=== PATIENT | male | born 1975 ===

== ENCOUNTER 2018-07-01 08:17 | Emergency (ER) | payer MEDICAID ==
[2018-07-01 08:21] VITALS: BMI 29.0
[2018-07-01 08:22] VITALS: RESP 20; O2SAT 97
[2018-07-01] MEDS ORDERED: Sodium Chloride 0.9% 1,000 ML IV STA (09:17)
--- NOTE | 2018-07-01 09:25 | ED PDOC ---
HPI: Abdomen Time Seen by Provider: 07/01/18 09:06 Chief Complaint (Provider): Abdominal Pain History Per: Patient, Other (HPD) History/Exam Limitations: no limitations Onset/Duration Of Symptoms: Other (prior to arrival) Current Symptoms Are (Timing): Still Present Additional Complaint(s): 43 y/o male with a PMHx of HTN and hypercholesterolemia presenting under police custody for evaluation of abdominal pain onset prior to arrival. Officer states patient was arrested last night and began to complain of acute abdominal pain after arrest. Patient states the pain is present in both sides of his abdomen and radiates to his back. He reports some nausea and dysuria, but denies any history of similar pain, changes in bowel habits, hematuria, frequency, vomiting , diarrhea, fall or trauma, testicular pain, numbness, weakness, chest pain, cough, shortness of breath, headache, fever, or chills. Patient admits to drinking, but denies any drug use. PMD: None reported Past Medical History Reviewed: Historical Data, Nursing Documentation, Vital Signs Vital Signs: Last Vital Signs Temp 98.2 F 07/01/18 08:21 Pulse 113 H 07/01/18 08:21 Resp 20 07/01/18 08:21 BP 126/91 H 07/01/18 08:21 Pulse Ox 97 07/01/18 09:32 - Medical History PMH: HTN, Hypercholesterolemia - Surgical History Surgical History: No Surg Hx - Family History Family History: States: Unknown Family Hx - Allergies Allergies/Adverse Reactions: Allergies Allergy/AdvReac Type Severity Reaction Status Date / Time No Known Allergies Allergy Verified 07/01/18 09:17 Review of Systems ROS Statement: Except As Marked, All Systems Reviewed And Found Negative Constitutional: Negative for: Fever, Chills Cardiovascular: Negative for: Chest Pain Respiratory: Negative for: Cough, Shortness of Breath Gastrointestinal: Positive for: Nausea, Abdominal Pain. Negative for: Vomiting , Diarrhea, Constipation Genitourinary Male: Positive for: Dysuria. Negative for: Frequency, Incontinence, Hematuria, Scrotal Pain Musculoskeletal: Positive for: Back Pain Neurological: Negative for: Weakness, Numbness, Headache, Dizziness Physical Exam - Reviewed Nursing Documentation Reviewed: Yes Vital Signs Reviewed: Yes - Physical Exam Appears: Positive for: Non-toxic, No Acute Distress Head Exam: Positive for: ATRAUMATIC, NORMAL INSPECTION, NORMOCEPHALIC Skin: Positive for: Normal Color, Warm, Dry. Negative for: Rash Eye Exam: Positive for: EOMI, Normal appearance, PERRL Neck: Positive for: Normal, Painless ROM, Supple Cardiovascular/Chest: Positive for: Regular Rate, Rhythm. Negative for: Murmur Respiratory: Positive for: Normal Breath Sounds. Negative for: Respiratory Distress Gastrointestinal/Abdominal: Positive for: Soft (mild diffuse tenderness), Tenderness Back: Positive for: Other (mild left lower back tenderness, negative straight leg raise) Extremity: Positive for: Normal ROM. Negative for: Pedal Edema, Deformity Neurologic/Psych: Positive for: Alert, Oriented (x3). Negative for: Motor/ Sensory Deficits - Laboratory Results Result Diagrams: 07/01/18 09:35 07/01/18 09:35 Interpretation Of Abn Labs: coccaine and etoh positive Urine dip results: Negative for: Leukocyte Esterase, Nitrate - ECG O2 Sat by Pulse Oximetry: 97 (RA) Pulse Ox Interpretation: Normal - Progress ED Course And Treament: 1137: Feels better. AAOx3. FU with pcp. Tolerated PO. Medical Decision Making Medical Decision Makin:17 Impression: Abdominal pain Plan: -CT abdomen and pelvis w/o contrast -Alcohol serum -CMP -Urine drug screen -Lipase -Urine dip -CBC w/ differential -Pepcid 20mg/50ml IVPB -1LNS -Toradol 15mg IVP -Reevaluation Scribe Attestation: Documented by Skip Sharma, acting as a scribe for Jake Duff MD. Provider Scribe Attestation: All medical record entries made by the Scribe were at my direction and personally dictated by me. I have reviewed the chart and agree that the record accurately reflects my personal performance of the history, physical exam, medical decision making, and the department course for this patient. I have also personally directed, reviewed, and agree with the discharge instructions and disposition. Disposition - Clinical Impression Clinical Impression: Abdominal pain, Alcohol abuse, Cocaine abuse Counseled Patient/Family Regarding: Studies Performed, Diagnosis, Need For Followup - Disposition Referrals: [facility] [Outside] - 07/03/18 Disposition: Routine/Home Disposition Time: 11:48 Condition: STABLE Additional Instructions: Return if not better in 3 days. Instructions: Stomach Ache and Stomach Upset, Drug Abuse and Drug Addiction (DC ), Alcohol Abuse and Alcoholism (DC) Print Language: ITALIAN
[2018-07-01 09:46] LABS: BASO % 0.5 % (0.0-2.0); EOS % 0.4 % (0.0-4.0); HEMOGLOBIN 16.6 g/dL (12.0-18.0); LYMPH # 1.6 K/uL (1.0-4.3); LYMPH % 16.1 % (20.0-40.0); MEAN CORPUSCULAR HEMOGLOBIN 30.1 pg (27.0-31.0); MEAN CORPUSCULAR HGB CONC 33.8 g/dL (33.0-37.0); MEAN PLATELET VOLUME 6.6 fl (7.2-11.7); MONO # 0.6 K/uL (0.0-0.8); NEUT # 7.4 K/uL (1.8-7.0); RBC 5.5 Mil/uL (4.40-5.90); RED CELL DISTRIBUTION WIDTH 13.8 % (11.5-14.5); WHITE BLOOD COUNT 9.7 K/uL (4.8-10.8)
[2018-07-01 09:56] LABS: ALB/GLOB RATIO 1.4 (1.0-2.1); ALBUMIN 4.9 g/dL (3.5-5.0); ALT/SGPT 67 U/L (21-72); AST/SGOT 63 U/L (17-59); BLOOD UREA NITROGEN 13 mg/dl (9-20); CALCIUM 9.2 mg/dL (8.4-10.2); GFR AFRICAN-AMERICAN > 60; GFR NON-AFRICAN AMERICAN > 60; LIPASE 34 U/L (23-300)
--- NOTE | 2018-07-01 10:20 | CT ---
Date of service: 07/01/2018 PROCEDURE: CT Abdomen and Pelvis without intravenous contrast HISTORY: R/O stone COMPARISON: None. TECHNIQUE: Technique. Contrast dose: Radiation dose: Total exam DLP = mGy-cm. This CT exam was performed using one or more of the following dose reduction techniques: Automated exposure control, adjustment of the mA and/or kV according to patient size, and/or use of iterative reconstruction technique. FINDINGS: LOWER THORAX: Unremarkable. LIVER: Fatty liver. No gross lesion or ductal dilatation. GALLBLADDER AND BILE DUCTS: Unremarkable. PANCREAS: Unremarkable. No gross lesion or ductal dilatation. SPLEEN: Unremarkable. ADRENALS: Unremarkable. No mass. KIDNEYS AND URETERS: Unremarkable. No hydronephrosis. No solid mass. VASCULATURE: Unremarkable. No aortic aneurysm. BOWEL: Unremarkable. No obstruction. No gross mural thickening. APPENDIX: Unremarkable. Normal appendix. PERITONEUM: Unremarkable. No free fluid. No free air. LYMPH NODES: Unremarkable. No enlarged lymph nodes. BLADDER: Unremarkable. REPRODUCTIVE: Unremarkable. BONES: No acute fracture. OTHER FINDINGS: None. IMPRESSION: Fatty liver.
[2018-07-01 11:27] LABS: BARBITURATES, UR NEGATIVE (NEGATIVE)
[2018-07-01 11:32] LABS: BENZODIAZEPINES, UR NEGATIVE (NEGATIVE); OPIATES, UR NEGATIVE (NEGATIVE); PHENCYCLIDINE, UR NEGATIVE (NEGATIVE)
[2018-07-01 12:21] VITALS: BP 124/61; PULSE 84; TEMP 98.6
== END 2018-07-01 12:54 ==
LOC: H.ER 08:17
DX: R10.9 Unspecified abdominal pain (principal); F10.10 Alcohol abuse, uncomplicated; F14.10 Cocaine abuse, uncomplicated; E78.00 Pure hypercholesterolemia, unspecified; I10 Essential (primary) hypertension; K76.0 Fatty (change of) liver, not elsewhere classified
CPT/HCPCS: 74176; 80053; 80320; 80324; 80345; 80346; 80349; 80353; 80358; 80361; 83690; 83992; 85025; 96361; 96374; 96375; 99285; J1885; J7030

== ENCOUNTER 2018-07-01 23:41 | Emergency (ER) | payer MEDICAID ==
[2018-07-01 23:41] VITALS: BMI 29.0
[2018-07-01 23:47] VITALS: RESP 18; O2SAT 98
--- NOTE | 2018-07-02 00:50 | ED PDOC ---
HPI: Psych/Substance Abuse Time Seen by Provider: 07/01/18 23:42 Chief Complaint (Nursing): Psychiatric Evaluation Chief Complaint (Provider): SI - 1 day History Per: Patient History/Exam Limitations: no limitations Onset/Duration Of Symptoms: Hrs Additional Complaint(s): 43 yo male with history of HTN presents for evaluation of SI. Pt under arrest and has been in [facility] x 1 day. When patient was being transferred to [facility] he reported SI. Pt states he does not have a plan. Pt denies SOB, chest pain, abdominal pain, N/V/D. Past Medical History Reviewed: Historical Data, Nursing Documentation, Vital Signs Vital Signs: Last Vital Signs Temp 98 F 07/01/18 23:43 Pulse 90 07/01/18 23:43 Resp 18 07/01/18 23:43 BP 145/90 07/01/18 23:43 Pulse Ox 98 07/01/18 23:43 - Medical History PMH: HTN, Hypercholesterolemia Denies: Diabetes, Hepatitis, HIV, Seizures, Sexually Transmitted Disease - Surgical History Surgical History: No Surg Hx - Family History Family History: States: Unknown Family Hx - Living Arrangements Living Arrangements: With Family - Social History Current smoker - smoking cessation education provided: No - Allergies Allergies/Adverse Reactions: Allergies Allergy/AdvReac Type Severity Reaction Status Date / Time No Known Allergies Allergy Verified 07/01/18 09:17 Review of Systems ROS Statement: Except As Marked, All Systems Reviewed And Found Negative Constitutional: Negative for: Fever, Chills Cardiovascular: Negative for: Chest Pain, Palpitations Respiratory: Negative for: Cough Gastrointestinal: Negative for: Nausea, Vomiting Neurological: Negative for: Weakness, Numbness Psych: Positive for: Suicidal ideation. Negative for: Depression, Psychosis - ECG O2 Sat by Pulse Oximetry: 98 Medical Decision Making Medical Decision Making: Crisis evaluation completed. Disposition - Clinical Impression Clinical Impression: Adjustment disorder - Patient ED Disposition Is Patient to be Admitted: No Counseled Patient/Family Regarding: Diagnosis, Need For Followup, Rx Given - Disposition Referrals: [facility] [Outside] Disposition: Routine/Home Disposition Time: 01:27 Condition: STABLE Additional Instructions: Pt is medically and psychiatrically cleared for incarceration. Instructions: Adjustment Disorder Forms: [employer] (H[place]er)
[2018-07-02 02:00] VITALS: BP 139/82; PULSE 78; TEMP 97.9
== END 2018-07-02 02:01 ==
LOC: H.ER 23:41
DX: F43.20 Adjustment disorder, unspecified (principal); E78.00 Pure hypercholesterolemia, unspecified; I10 Essential (primary) hypertension